=== PATIENT | female | born 1990 | race Caucasian/White ===

== ENCOUNTER 2020-01-27 13:24 | Inpatient (IN) ==
[2020-01-27] MEDS ORDERED: DINOPROSTONE VAG GEL 10 MG SYRINGE VAG ONE (14:04)
[2020-01-27] MEDS ORDERED: ONDANSETRON 4 MG/2 ML VIAL IV PRN (14:18)
[2020-01-27 14:47] LABS: Basophils % 0.3 % (0.0-0.8); Eosinophils # 0.2 10*3/uL (0.0-0.87); Eosinophils % 1.5 % (0.00-10.9); Hematocrit 34.2 VOL% (35.7-47.0); Hemoglobin 10.7 GM/DL (12.0-16.0); Immature Granulocytes % 1.6 %; Immature Granulocytes Absolute 0.22 #; Lymphocytes # 2.6 10*3/uL (1.4-4.0); Lymphocytes % 18.9 % (21.3-54.2); Mean Corpuscular HGB Conc 31.3 GM/DL (32-36); Mean Corpuscular Volume 81.8 FL (87-102); Mean Platelet Volume 11.2 FL (9.6-12.0); Monocytes % 8.2 % (1.7-12.7); Neutrophils % 69.5 % (38.7-73.9); Platelet Count 252 T/CUMM (130-400); Red Blood Count 4.18 MC/CUMM (3.8-5.5); Red Cell Distribution Width 14.3 % (9.3-17.3); White Blood Count 13.8 T/CUMM (4-12)
[2020-01-27 15:10] LABS: Alanine Aminotransferase 24 U/L (13-56); Albumin 2.5 G/DL (3.4-5.0); Alkaline Phosphatase 167 U/L (45-117); Aspartate Amino Transferase 17 U/L (0-37); Bilirubin,Total < 0.39 MG/DL (0.2-1.0); Blood Urea Nitrogen 9 MG/DL (7-18); Calcium 8.9 MG/DL (8.5-10.1); Estimated Glom Filtration Rate 156 ML/MIN; Glucose 76 MG/DL (74-106); Total Protein 6.7 G/DL (6.4-8.3)
[2020-01-27] MEDS: LACTATED RINGERS 1,000 ML IV SCH (15:51)
[2020-01-28] MEDS: LACTATED RINGERS 1,000 ML IV SCH (01:46)
[2020-01-28] MEDS ORDERED: OXYTOCIN/LR 20 UNIT/1,000 ML BAG IV SCH (02:30)
[2020-01-28] MEDS ORDERED: BUTORPHANOL 1 MG/ML VIAL IV PRN (07:14)
[2020-01-28] MEDS ORDERED: BUTORPHANOL 2 MG/ML VIAL IV PRN (07:14)
[2020-01-28] MEDS ORDERED: MEPERIDINE 25 MG/1 ML VIAL IV PRN (07:17)
[2020-01-28] MEDS ORDERED: MEPERIDINE 50 MG/1 ML VIAL IV PRN (07:17)
[2020-01-28] MEDS ORDERED: hydrOXYzine HCL 25 MG/1 ML VIAL IM PRN (09:28)
[2020-01-28] MEDS ORDERED: diphenhydrAMINE 50 MG/1 ML VIAL IV PRN ×2 (09:28)
[2020-01-28] MEDS ORDERED: LACTATED RINGERS 250 ML IV PRN (09:28)
[2020-01-28] MEDS ORDERED: ePHEDrine 50 MG/ML VIAL IV PRN (09:28)
[2020-01-28] MEDS ORDERED: FAMOTIDINE 20 MG/2 ML VIAL IV ONE (09:28)
[2020-01-28] MEDS ORDERED: PROMETHAZINE 25 MG/1 ML VIAL IM ONE (09:28)
[2020-01-28] MEDS ORDERED: fentaNYL 2 MCG/ROPIV 0.2% EPID 100 ML EPIDURAL SCH (09:30)
[2020-01-28] MEDS ORDERED: CITRIC ACID/SODIUM CITRATE 30 ML UDCUP PO ONE (09:31)
[2020-01-28] MEDS ORDERED: LACTATED RINGERS 1,000 ML IV ONE (09:56)
[2020-01-28 12:46] LABS: Apearance,Urine CLEAR (Clear); Bilirubin,Urine Negative (Negative); Blood, Urine Negative (Negative); Glucose,Urine (UA) Negative (Negative); Ketones,Urine Negative (Negative); Mucus,Urine Few /LPF (Occasional); Nitrite,Urine Negative (Negative); Protein,Urine Negative; RBC,Urine <1 /HPF (0-4); Squamous Epithelial Cell,Urine Occasional /HPF (0-10); Urine Color Yellow (Yellow); Urine Specific Gravity 1.013 (1.001-1.035); Urine Urobilinogen < 2.0 EU/DL (0.2-1.0); WBC,Urine 1 /HPF (0-6)
[2020-01-28] MEDS ORDERED: OXYTOCIN/LR 30 UNIT/1,000 ML BAG IV ONE (14:00)
[2020-01-28] MEDS ORDERED: OXYTOCIN 10 UNIT/ML VIAL IM ONE (14:00)
[2020-01-28] MEDS ORDERED: ceFAZolin 3,000 MG in SYRINGE 1 EACH IV ONE (15:46)
[2020-01-28 16:25] LABS: Cord Arterial Blood HCO3 18.9 MMOL/L
[2020-01-28 16:27] LABS: Cord Venous Blood HCO3 19.8 MMOL/L; Cord Venous Blood PCO2 53.5 MMHG
[2020-01-28 16:28] LABS: Cord Venous Blood PO2 15.9
[2020-01-28] MEDS ORDERED: RHO(D) IMMUNE GLOBULIN 300 MCG SYRINGE IM ONE (17:58)
[2020-01-28] MEDS ORDERED: OXYTOCIN/LR 20 UNIT/1,000 ML BAG IV ONE (17:58)
[2020-01-28] MEDS ORDERED: ACETAMINOPHEN 325 MG TABLET PO PRN (17:58)
[2020-01-28] MEDS ORDERED: ONDANSETRON 4 MG/2 ML VIAL IV PRN (17:58)
[2020-01-28] MEDS ORDERED: MAGNESIUM HYDROXIDE SUSP 30 ML UDCUP PO PRN (17:58)
[2020-01-28] MEDS ORDERED: SIMETHICONE CHEW 80 MG TABLET PO PRN (17:58)
[2020-01-28] MEDS ORDERED: LACTATED RINGERS 1,000 ML IV SCH (18:00)
[2020-01-28] MEDS ORDERED: SODIUM BICARBONATE 10 MEQ/10 ML SYRINGE IV ONE (18:04)
[2020-01-28] MEDS ORDERED: MORPHINE 10 MG/10 ML VIAL ONE (18:04)
[2020-01-28] MEDS ORDERED: PHENYLEPHRINE 1 MG/10 ML SYRINGE IV ONE (18:05)
[2020-01-28] MEDS ORDERED: LIDOCAINE MPF 2% /EPI 20 ML VIAL ONE (18:05)
[2020-01-28 23:07] LABS: Basophils % 0.2 % (0.0-0.8); Eosinophils % 0.1 % (0.00-10.9); Hematocrit 32.2 VOL% (35.7-47.0); Hemoglobin 10.1 GM/DL (12.0-16.0); Immature Granulocytes % 0.8 %; Immature Granulocytes Absolute 0.14 #; Lymphocytes # 2.4 10*3/uL (1.4-4.0); Mean Corpuscular HGB Conc 31.4 GM/DL (32-36); Mean Corpuscular Volume 82.8 FL (87-102); Mean Platelet Volume 11.6 FL (9.6-12.0); Monocytes % 9.3 % (1.7-12.7); Neutrophils % 75.6 % (38.7-73.9); Platelet Count 224 T/CUMM (130-400); Red Blood Count 3.89 MC/CUMM (3.8-5.5); Red Cell Distribution Width 14.4 % (9.3-17.3); White Blood Count 16.8 T/CUMM (4-12)
[2020-01-28] MEDS: ceFAZolin 1,000 MG in SYRINGE 1 EACH IV SCH (23:27)
[2020-01-29] MEDS: DOCUSATE SODIUM 100 MG CAPSULE PO SCH ×3 (00:57→21:15)
[2020-01-29 04:53] LABS: Basophils % 0.3 % (0.0-0.8); Eosinophils # 0.1 10*3/uL (0.0-0.87); Eosinophils % 0.6 % (0.00-10.9); Hematocrit 28.7 VOL% (35.7-47.0); Hemoglobin 9.3 GM/DL (12.0-16.0); Immature Granulocytes % 0.9 %; Immature Granulocytes Absolute 0.13 #; Lymphocytes # 2.9 10*3/uL (1.4-4.0); Lymphocytes % 19.9 % (21.3-54.2); Mean Corpuscular HGB Conc 32.4 GM/DL (32-36); Mean Corpuscular Volume 80.8 FL (87-102); Mean Platelet Volume 11.8 FL (9.6-12.0); Monocytes % 10.9 % (1.7-12.7); Neutrophils % 67.4 % (38.7-73.9); Platelet Count 207 T/CUMM (130-400); Red Blood Count 3.55 MC/CUMM (3.8-5.5); Red Cell Distribution Width 14.2 % (9.3-17.3); White Blood Count 14.6 T/CUMM (4-12)
[2020-01-29] MEDS: ceFAZolin 1,000 MG in SYRINGE 1 EACH IV SCH (06:14)
[2020-01-29] MEDS: MULTIVITAMIN (PRENATAL) TABLET PO SCH (09:01)
[2020-01-29] MEDS: IBUPROFEN 800 MG TABLET PO PRN (12:50)
[2020-01-29] MEDS: METOCLOPRAMIDE 10 MG TABLET PO SCH ×2 (15:43→23:22)
[2020-01-30 07:44] VITALS: BP 133/76
[2020-01-30] MEDS: METOCLOPRAMIDE 10 MG TABLET PO SCH (07:44)
[2020-01-30] MEDS: IBUPROFEN 800 MG TABLET PO PRN (07:44)
[2020-01-30] MEDS ORDERED: FUROSEMIDE 40 MG TABLET PO ONE (08:30)
[2020-01-30] MEDS: DOCUSATE SODIUM 100 MG CAPSULE PO SCH (09:56)
[2020-01-30] MEDS: MULTIVITAMIN (PRENATAL) TABLET PO SCH (09:56)
== END 2020-01-30 12:25 | disposition home or self-care (01) | DRG 788 ==
LOC: N.LDOUT 13:24 → N.LD 13:26 → N.OB 01-28 21:25
PROVIDERS: ADMIT Obstetrics & Gynecology; ATTEND Obstetrics & Gynecology
PROC: LDCSECT (ICD-10-PCS; 2020-01-28 15:00)

== ENCOUNTER 2021-05-09 09:50 | Inpatient (IN) ==
[2021-05-09] MEDS ORDERED: CITRIC ACID/SODIUM CITRATE 30 ML UDCUP PO ONE (09:58)
[2021-05-09] MEDS ORDERED: FAMOTIDINE 20 MG/2 ML VIAL IV ONE (09:58)
[2021-05-09] MEDS ORDERED: ceFAZolin 3,000 MG in SYRINGE 1 EACH IV ONE (09:58)
[2021-05-09 10:25] LABS: Basophils % 0.3 % (0.0-0.8); Eosinophils # 0.1 10*3/uL (0.0-0.87); Eosinophils % 1.2 % (0.00-10.9); Hematocrit 35.2 VOL% (35.7-47.0); Hemoglobin 10.8 GM/DL (12.0-16.0); Immature Granulocytes % 0.7 %; Immature Granulocytes Absolute 0.07 #; Lymphocytes # 2.9 10*3/uL (1.4-4.0); Lymphocytes % 27.8 % (21.3-54.2); Mean Corpuscular HGB Conc 30.7 GM/DL (32-36); Mean Corpuscular Volume 81.7 FL (87-102); Mean Platelet Volume 10.9 FL (9.6-12.0); Monocytes % 6.9 % (1.7-12.7); Neutrophils % 63.1 % (38.7-73.9); Platelet Count 233 T/CUMM (130-400); Red Blood Count 4.31 MC/CUMM (3.8-5.5); Red Cell Distribution Width 14.6 % (9.3-17.3); White Blood Count 10.5 T/CUMM (4-12)
[2021-05-09 10:53] LABS: Albumin 2.6 G/DL (3.4-5.0); Bilirubin,Total 0.4 MG/DL (0.20-1.00); Calcium 8.8 MG/DL (8.5-10.1); Osmolality,Calculated 270.8 MOS/KG (273-304); Potassium 3.9 MMOL/L (3.5-5.1); Total Protein 6.8 G/DL (6.4-8.2)
[2021-05-09] MEDS: LACTATED RINGERS 1,000 ML IV SCH ×2 (11:22→13:38)
[2021-05-09] MEDS ORDERED: TRANEXAMIC ACID 1,000 MG/10 ML VIAL ONE (12:09)
[2021-05-09] MEDS ORDERED: miSOPROStoL 200 MCG TABLET ONE (12:09)
[2021-05-09] MEDS ORDERED: METHYLERGONOVINE 0.2 MG/1 ML AMP ONE (12:09)
[2021-05-09] MEDS ORDERED: CARBOPROST TROMETHAMINE 250 MCG/ML AMP IM ONE (12:10)
[2021-05-09] MEDS ORDERED: OXYTOCIN/LR 30 UNIT/1,000 ML BAG IV ONE (12:13)
[2021-05-09] MEDS ORDERED: OXYTOCIN 10 UNIT/ML VIAL IM ONE (12:13)
[2021-05-09] MEDS ORDERED: BUPIVACAINE SPINAL 0.75% 2 ML AMP SPINAL ONE (13:03)
[2021-05-09] MEDS ORDERED: KETOROLAC 30 MG/1 ML VIAL ONE ×2 (13:03)
[2021-05-09] MEDS ORDERED: ONDANSETRON 4 MG/2 ML VIAL ONE (13:03)
[2021-05-09] MEDS ORDERED: PHENYLEPHRINE 1 MG/10 ML SYRINGE IV ONE ×2 (13:56→14:06)
[2021-05-09] MEDS ORDERED: GLYCOPYRROLATE 0.4 MG/2 ML VIAL ONE (13:56)
[2021-05-09 14:23] LABS: Cord Arterial Blood HCO3 26.4 MMOL/L
[2021-05-09 14:25] LABS: Cord Venous Blood HCO3 22.7 MMOL/L; Cord Venous Blood PCO2 38.9 MMHG; Cord Venous Blood PO2 20.7 MMHG
[2021-05-09] MEDS ORDERED: PHENYLEPHRINE 10 MG/1 ML VIAL IV ONE (14:26)
[2021-05-09 14:27] LABS: Bilirubin,Urine Negative (Negative); Blood, Urine Negative (Negative); Glucose,Urine (UA) Negative (Negative); Ketones,Urine 80 mg/dL (Negative); Mucus,Urine Occasional /LPF (Occasional); Nitrite,Urine Negative (Negative); Protein,Urine Negative; RBC,Urine <1 /HPF (0-4); Squamous Epithelial Cell,Urine Occasional /HPF (0-10); Urine Appearance CLEAR (Clear); Urine Color Yellow (Yellow); Urine Specific Gravity 1.016 (1.001-1.035); Urine Urobilinogen < 2.0 EU/DL (0.2-1.0)
[2021-05-09] MEDS ORDERED: hydrOXYzine HCL 25 MG/1 ML VIAL IM PRN (14:51)
[2021-05-09] MEDS ORDERED: diphenhydrAMINE 50 MG/1 ML VIAL IV PRN (14:51)
[2021-05-09] MEDS ORDERED: HYDROmorphone 2 MG/1 ML VIAL IV PRN (14:51)
[2021-05-09] MEDS ORDERED: ONDANSETRON 4 MG/2 ML VIAL IV PRN ×2 (14:51→15:00)
[2021-05-09] MEDS ORDERED: SIMETHICONE CHEW 80 MG TABLET PO PRN (15:00)
[2021-05-09] MEDS ORDERED: RHO(D) IMMUNE GLOBULIN 300 MCG SYRINGE IM ONE (15:00)
[2021-05-09] MEDS ORDERED: ACETAMINOPHEN 500 MG TABLET PO SCH (15:00)
[2021-05-09] MEDS ORDERED: LACTATED RINGERS 1,000 ML IV SCH (15:00)
[2021-05-09] MEDS ORDERED: ACETAMINOPHEN 325 MG TABLET PO PRN (15:00)
[2021-05-09] MEDS ORDERED: OXYTOCIN/LR 20 UNIT/1,000 ML BAG IV ONE (15:00)
[2021-05-09] MEDS: DOCUSATE SODIUM 100 MG CAPSULE PO SCH (20:41)
[2021-05-09] MEDS: IBUPROFEN 800 MG TABLET PO PRN (20:47)
[2021-05-09] MEDS ORDERED: KETOROLAC 30 MG/1 ML VIAL IV SCH (21:00)
[2021-05-09] MEDS: ceFAZolin 2,000 MG/50 ML DUPLEX IV SCH (22:04)
[2021-05-09 22:05] LABS: Basophils % 0.3 % (0.0-0.8); Eosinophils # 0.1 10*3/uL (0.0-0.87); Eosinophils % 0.7 % (0.00-10.9); Hematocrit 31.1 VOL% (35.7-47.0); Hemoglobin 9.8 GM/DL (12.0-16.0); Immature Granulocytes % 0.5 %; Immature Granulocytes Absolute 0.06 #; Lymphocytes # 2.9 10*3/uL (1.4-4.0); Lymphocytes % 25.2 % (21.3-54.2); Mean Corpuscular HGB Conc 31.5 GM/DL (32-36); Mean Platelet Volume 11.6 FL (9.6-12.0); Monocytes % 8.8 % (1.7-12.7); Neutrophils % 64.5 % (38.7-73.9); Platelet Count 189 T/CUMM (130-400); Red Blood Count 3.84 MC/CUMM (3.8-5.5); Red Cell Distribution Width 14.6 % (9.3-17.3); White Blood Count 11.6 T/CUMM (4-12)
[2021-05-10 05:02] LABS: Basophils % 0.4 % (0.0-0.8); Eosinophils # 0.2 10*3/uL (0.0-0.87); Eosinophils % 1.7 % (0.00-10.9); Hematocrit 29.3 VOL% (35.7-47.0); Hemoglobin 9.2 GM/DL (12.0-16.0); Immature Granulocytes % 0.4 %; Immature Granulocytes Absolute 0.04 #; Lymphocytes # 3.2 10*3/uL (1.4-4.0); Mean Corpuscular HGB Conc 31.4 GM/DL (32-36); Mean Corpuscular Volume 81.8 FL (87-102); Mean Platelet Volume 11.8 FL (9.6-12.0); Monocytes % 9.2 % (1.7-12.7); Neutrophils % 53.3 % (38.7-73.9); Platelet Count 183 T/CUMM (130-400); Red Blood Count 3.58 MC/CUMM (3.8-5.5); Red Cell Distribution Width 14.6 % (9.3-17.3)
[2021-05-10] MEDS: ceFAZolin 2,000 MG/50 ML DUPLEX IV SCH (05:39)
[2021-05-10] MEDS: IBUPROFEN 800 MG TABLET PO PRN ×2 (07:10→14:31)
[2021-05-10] MEDS: METOCLOPRAMIDE 10 MG TABLET PO SCH ×2 (07:13→16:43)
[2021-05-10] MEDS: FERROUS SULFATE 325 MG TABLET PO SCH (08:23)
[2021-05-10] MEDS: DOCUSATE SODIUM 100 MG CAPSULE PO SCH ×2 (08:23→20:54)
[2021-05-10] MEDS: MULTIVITAMIN (PRENATAL) TABLET PO SCH (08:23)
[2021-05-10] MEDS: MAGNESIUM HYDROXIDE SUSP 30 ML UDCUP PO PRN ×2 (08:24→20:54)
[2021-05-10] MEDS ORDERED: RHO(D) IMMUNE GLOBULIN 300 MCG SYRINGE IM ONE (11:15)
[2021-05-11] MEDS ORDERED: SIMETHICONE CHEW 125 MG TABLET PO PRN (00:08)
[2021-05-11] MEDS: METOCLOPRAMIDE 10 MG TABLET PO SCH (00:13)
[2021-05-11] MEDS: IBUPROFEN 800 MG TABLET PO PRN (01:01)
[2021-05-11] MEDS ORDERED: BISACODYL 10 MG SUPP RECTAL PRN (02:04)
[2021-05-11] MEDS: FERROUS SULFATE 325 MG TABLET PO SCH (08:56)
[2021-05-11] MEDS: DOCUSATE SODIUM 100 MG CAPSULE PO SCH (08:56)
[2021-05-11] MEDS: MULTIVITAMIN (PRENATAL) TABLET PO SCH (08:56)
[2021-05-11 09:27] VITALS: BP 93/55
== END 2021-05-11 13:50 | disposition home or self-care (01) | DRG 788 ==
LOC: N.LD 09:50 → N.OB 18:19
PROVIDERS: ADMIT Obstetrics & Gynecology; ATTEND Obstetrics & Gynecology
PROC: LDCSECT (ICD-10-PCS; 2021-05-09 13:40)